=== PATIENT | female | born 1970 | race Caucasian/White ===

== ENCOUNTER 2016-03-08 09:38 | Emergency (ER) | payer OTHER ==
[2016-03-08 09:59] VITALS: BP 146/81; PULSE 84; RESP 18; TEMP 98; O2SAT 97
--- NOTE | 2016-03-08 11:48 | UCPHY ---
[id number] Seen by Provider: 03/08/16 10:45 HPI/ROS: CHIEF COMPLAINT: Sinus pressure HISTORY OF PRESENT ILLNESS: This is a 45-year-old female with 4 day history of maxillary sinus pressure, sore throat, cough, and ear congestion. She denies headache. She has not had fever chills. No chest pain or shortness of breath. She has not had myalgias. She has tried Sudafed and Mucinex. REVIEW OF SYSTEMS: A ten point review of systems was performed and is negative with the exception of the items mentioned in the HPI. Source: Patient Exam Limitations: No limitations - Personal History LMP (Females 10-55): 15-21 Days Ago Current Tetanus Diphtheria and Acellular Pertussis (TDAP): Yes Tetanus Vaccine Date: within 10 years - Medical/Surgical History Hx Asthma: No Hx Chronic Respiratory Disease: No Hx Diabetes: No Hx Cardiac Disease: No Hx Renal Disease: No Hx Cirrhosis: No Hx Alcoholism: No Hx HIV/AIDS: No Hx Splenectomy or Spleen Trauma: No Other PMH: hypothyroid, acne, broken nose. L knee and R shoulder surgery - Family History Significant Family History: No pertinent family hx - Social History Smoking Status: Never smoked - Physical Exam Exam: General Appearance: Alert. Vital signs reviewed. Eyes: Pupils equal and round, no conjunctival injection, no discharge. Anicteric. ENT, Mouth: Mucous membranes are moist, no oropharyngeal erythema or edema. No drainage in the posterior oropharynx. Mild bilateral maxillary sinus pressure. Neck: No lymphadenopathy, supple. Respiratory: Lungs are clear to auscultation; no wheezes, rales, or rhonchi. Cardiovascular: Regular rate and rhythm; no murmur, rub, or gallop. Gastrointestinal: Abdomen is soft and nontender, no masses or organomegaly, bowel sounds normal. Skin: Warm and dry, no rashes on exposed skin, normal color. Back:. No CVAT. Neurological: Alert and oriented. Moving all four extremities easily and equally. Psychiatric: Normal affect. Constitutional: Initial Vital Signs Temperature (C) 36.6 C 03/08/16 09:57 Heart Rate 84 03/08/16 09:57 Respiratory Rate 18 03/08/16 09:57 Blood Pressure 146/81 H 03/08/16 09:57 O2 Sat (%) 97 03/08/16 09:57 O2 Delivery Mode Room Air Allergies/Adverse Reactions: erythromycin base Allergy (Intermediate, Verified 06/15/15 09:40) Other-Enter Comments Sulfa (Sulfonamide Antibiotics) Allergy (Intermediate, Verified 06/15/15 09:40) Hives Home Medications: Medication Instructions Recorded Levothyroxine [Synthroid] 50 mcg PO DAILY 05/07/11 Spironolactone [Aldactone 25 MG 01/17/15 (*)] Zovia 1-35E Tablet 06/15/15 Amoxicillin 500 mg PO TID 7 Days 03/08/16 Medical Decision Making ED Course/Re-evaluation: Influenza test is negative. Signs and symptoms of sinusitis. We discussed the fact that this is likely a viral illness. She has had antibiotics for similar symptoms in the past with good results. She would like a prescription to use if she is not recovering. We discussed the danger signs that should prompt her to be re-evaluated. She will follow up with her primary care physician. Differential Diagnosis: I considered a differential diagnosis that includes but is not limited to sinusitis, influenza, upper respiratory infection, pharyngitis, and bronchitis. Departure - Departure Disposition: Home, Routine, Self-Care Clinical Impression: Sinusitis Qualifiers: Sinusitis location: maxillary Chronicity: acute Recurrence: non-recurrent Qualifier Code: (J01.00) Acute maxillary sinusitis, unspecified Condition: Good Instructions: Sinusitis (ED) Additional Instructions: As we discussed, it is not clear whether this is a viral or a bacterial sinus infection. I am writing a prescription for antibiotics which you should take as prescribed. Referrals: Rafael Joshi MD [Primary Care Provider] - As per Instructions Prescriptions: Amoxicillin 500 mg PO TID 7 Days - PQRS PQRS Measurement: Does not apply.
== END 2016-03-08 12:04 | disposition home or self-care (01) ==
LOC: CED 09:38
DX: J01.00 Acute maxillary sinusitis, unspecified (principal); E03.9 Hypothyroidism, unspecified
CPT/HCPCS: 87400-PO; 99214-PO; G0463-PO

== ENCOUNTER 2016-07-31 13:43 | Emergency (ER) | payer BC, OTHER ==
[2016-07-31 13:54] VITALS: BP 133/86; PULSE 80; RESP 16; TEMP 98.8; O2SAT 97
--- NOTE | 2016-07-31 14:25 | EDPHY ---
H & P Time Seen by Provider: 07/31/16 13:58 HPI/ROS: CC: Pain to the sinuses, recent plane travel HPI: 45 yo female arrived home here 1.5 hours ago from [facility] to [place]. [place] until 2 days ago when develeoped pain to hte maxiallry > frontal sinuses as well as stopped up sounding voice without ST or fever. She has been trying Mucinex, thought there was no cough per se, nor PND or ear pain. She does feel worse when she leans forward. No others ill, no exposure, no seasonal allergy sx nor sx of a simple URI recently. ROS: Constitutional - no fevers or chills. Eyes - no discharge, or injection ENT - no earache, change in hearing, difficulty swallowing, sore throat. No swollen glands. Respiratory - No Shortness of breath, phlegm, wheezing or pleuritic chest pain. The cough is dry Neurological - no headache, numbness, tingling, or paresthesias. No focal motor weakness. Skin: no rash. Smoking Status: Never smoked Physical Exam: General: Awake and alert and nontoxic, sounding rather stuffy Vital signs stable. Afebrile. HEENT: Normocephalic. Atraumatic. TMs clear. Membranes moist. Oropharynx clear without erythema. mild right anterior triangle adenopathy. There is tenderness to Maxillary > frontal sinuses,which aggravates the pain she had at presentation. Skin- Normal turgor. No cyanosis. Constitutional: Initial Vital Signs Temperature (C) 37.1 C 07/31/16 13:51 Heart Rate 80 07/31/16 13:51 Respiratory Rate 16 07/31/16 13:51 Blood Pressure 133/86 H 07/31/16 13:51 O2 Sat (%) 97 07/31/16 13:51 O2 Delivery Mode Room Air Allergies/Adverse Reactions: erythromycin base Allergy (Intermediate, Verified 06/15/15 09:40) Other-Enter Comments Sulfa (Sulfonamide Antibiotics) Allergy (Intermediate, Verified 06/15/15 09:40) Hives Home Medications: Medication Instructions Recorded Levothyroxine [Synthroid] 50 mcg PO DAILY 05/07/11 Spironolactone [Aldactone 25 MG 01/17/15 (*)] Zovia 1-35E Tablet 06/15/15 Acetaminophen [Arthritis Pain 1,300 mg PO BID PRN #60 tablet.er 07/31/16 Relief] Amox Tr/K Clav (Augmentin) 500 mg PO BID #10 tab 07/31/16 [Augmentin 500/125 MG TAB (*)] Amoxicillin 1,500 mg PO BID 5 Days 07/31/16 Medical Decision Making ED Course/Re-evaluation: We discussed at lengthy the pathophys for sinusitis. She has had no prodrome of antecedent sinus blockage, though a recent plane flight out to [place] and back ( return was rough for her). Perhaps this was rodriguez, as she certianly has clinical findings of sinusiitis. We talked of the latest protocols of high dose, short duration Augmentin as well as Afrin use. Differential Diagnosis: My DDX URI Differential diagnosis includes but is not limited to the following: URI, pharyngitis, strep pharyngitis, otitis media, sinusitis, bronchitis, pneumonia. Departure - Departure Disposition: Home, Routine, Self-Care Clinical Impression: Acute frontal sinusitis, Acute maxillary sinusitis Condition: Good Instructions: Sinusitis (ED) Additional Instructions: Tylenol and Advil works well together in combination: 1300 mg Extended Release Tylenol and 800 mg Advil every 12 hours. Referrals: Rafael Joshi MD [Primary Care Provider] - As per Instructions Prescriptions: Acetaminophen [Arthritis Pain Relief] 1,300 mg PO BID PRN #60 tablet.er PRN Reason: Pain, Moderate Amox Tr/K Clav (Augmentin) [Augmentin 500/125 MG TAB (*)] 500 mg PO BID #10 tab Amoxicillin 1,500 mg PO BID 5 Days
== END 2016-07-31 14:31 | disposition home or self-care (01) ==
LOC: CED 13:43
DX: J01.00 Acute maxillary sinusitis, unspecified (principal); J01.10 Acute frontal sinusitis, unspecified

== ENCOUNTER → 2016-10-26 | Outpatient (CLI) | payer BC | LOC: CIMAGING 07:30 | PROVIDERS: ATTEND Family Medicine | DX: Z12.31 Encounter for screening mammogram for malignant neoplasm of breast (principal) | CPT/HCPCS: G0202 ==

== ENCOUNTER → 2017-10-29 | Outpatient (CLI) | payer OTHER | LOC: CIMAGING 07:59 | PROVIDERS: ATTEND Family Medicine | DX: Z12.31 Encounter for screening mammogram for malignant neoplasm of breast (principal) ==